=== PATIENT | male | born 1985 | race Two or more races ===

== ENCOUNTER 2020-05-04 16:00 | Emergency (ER) | payer BC, OTHER ==
[~2020-05-04] VITALS: Ht 180.3 cm; Wt 80.4 kg
[2020-05-04] MEDS ORDERED: LIDOCAINE-MPF 1%, 5ML ONE (16:24)
[2020-05-04] MEDS ORDERED: DIPH,PERTUSS(ACELL),TET VAC/PF 0.5 ML IM-VACC ONE ×2 (16:30→16:31)
[2020-05-04] MEDS ORDERED: LIDOCAINE-MPF 1%, 5ML INFIL ONE (16:30)
[2020-05-04] MEDS ORDERED: BUPIVACAINE 0.25% INFIL ONE (16:30)
[2020-05-04] MEDS ORDERED: BUPIVACAINE 0.25% ONE (16:31)
[2020-05-04] MEDS ORDERED: NEOSPORIN OINT. PKT 1 PACKET ONE (17:27)
[2020-05-04 18:04] VITALS: BP 136/96
--- NOTE | 2020-05-04 18:23 | NUR ---
TASK RN: SPOKE WITH DR ESTRADA RE: WOUND CARE AND F/U. PT IS TO CALL [facility] TO FOR F/U APPT. W/I 3 DAYS. IF PT IS UNABLE TO MAKE APPT AT [facility] HE IS TO RETURN TO THE ED FOR RECHECK. HE IS TO KEEP THE DRESSING CDI UNTIL F/U. PT VERBLAIZES UNDERSTANDING.
--- NOTE | 2020-05-04 18:24 | NUR ---
TASK RN: Patient/Caregiver given discharge instructions and they have confirmed that they understand the instructions. Patient ambulatory with steady gait.
== END 2020-05-04 18:27 | disposition home or self-care (01) ==
LOC: ED 18:00
DX: S62.630B Displaced fracture of distal phalanx of right index finger, initial encounter for open fracture (principal); G89.11 Acute pain due to trauma; W23.0XXA Caught, crushed, jammed, or pinched between moving objects, initial encounter; Y93.89 Activity, other specified; Y92.098 Other place in other non-institutional residence as the place of occurrence of the external cause; Y99.8 Other external cause status
CPT/HCPCS: 11740; 12042; 90471; 90715; 99284

== ENCOUNTER 2020-05-06 12:28 | Emergency (ER) | payer BC, OTHER ==
[~2020-05-06] VITALS: Ht 177.8 cm; Wt 70.0 kg
--- NOTE | 2020-05-06 13:24 | NUR ---
PT STATES HE WAS UNABLE TO SECURE AN APPOINTMENT W/ [facility] FOR FX FOLLOW-UP. C/O THROBBING PAIN TO FINGER, SLIGHT BLOOD DISCHARGE FROM FINGER TIP AREA. DRESSING AND FINGER SPLINT PRESENT. PT DENIES REMOVING DRESSING/SPLINT. STATES PAIN MED NOT HELPING (HYDROCODONE/ACET 5-325MG) - LAST DOSE 1200 TODAY.
[2020-05-06] MEDS ORDERED: HYDR-3240 PO (13:30)
[2020-05-06] MEDS ORDERED: CEPH-376 PO (13:30)
--- NOTE | 2020-05-06 13:31 | NUR ---
DR LYON BS FOR EXAM
--- NOTE | 2020-05-06 13:41 | NUR ---
SPLINT AND PARTIAL DRESSING REMOVED PER ERP. DRESSING ADHERED TO FINGERTIP. PT NOW SOAKING FINGER/DRESSING IN STERILE WATER.
--- NOTE | 2020-05-06 13:46 | NUR ---
DRESSING & ADAPTEC REMOVED. MULTIPLE STITCHES TO FINGER TIP. SCANT BLOOD DRAINAGE FROM LATERAL FINGER.
--- NOTE | 2020-05-06 15:40 | NUR ---
PT RESTING QUIETLY ON GURNEY, AWAITING FINGER RE-DRESSING & SPLINT.
[2020-05-06] MEDS ORDERED: NEOSPORIN OINT. PKT 1 PACKET ONE (15:44)
[2020-05-06 16:20] VITALS: BP 132/99
--- NOTE | 2020-05-06 16:20 | NUR ---
PT REQUESTING ARM SLING
--- NOTE | 2020-05-06 16:25 | NUR ---
SLING APPLIED PER DRYWALLER
== END 2020-05-06 16:31 | disposition home or self-care (01) ==
LOC: ED 16:00
DX: S62.660B Nondisplaced fracture of distal phalanx of right index finger, initial encounter for open fracture (principal); W23.0XXA Caught, crushed, jammed, or pinched between moving objects, initial encounter; Y93.89 Activity, other specified; Y92.89 Other specified places as the place of occurrence of the external cause; Y99.8 Other external cause status
CPT/HCPCS: 99283

== ENCOUNTER 2020-05-13 16:30 | Emergency (ER) | payer BC ==
[~2020-05-13] VITALS: Ht 180.3 cm; Wt 80.6 kg
[~2020-05-13 16:30] MED LIST: CEPH-376 PO; HYDR-3240 PO
[2020-05-13 16:49] VITALS: BP 120/85
== END 2020-05-13 17:19 | disposition home or self-care (01) ==
LOC: ED 17:00
DX: S61.210D Laceration without foreign body of right index finger without damage to nail, subsequent encounter (principal); X58.XXXD Exposure to other specified factors, subsequent encounter
CPT/HCPCS: 99283

== ENCOUNTER 2020-05-21 16:13 | Emergency (ER) | payer BC ==
[~2020-05-21] VITALS: Ht 180.3 cm; Wt 80.2 kg
[2020-05-21 16:30] VITALS: BP 150/108
--- NOTE | 2020-05-21 17:07 | NUR ---
UPON ENTRY TO ROOM, DESIGN INTERN REMOVING SUTURES. PT FINGER TENDER, BUT TOLERATING SUTURE REMOVAL WELL. ERPA IN DURING REMOVAL, AND WILL RECHECK FOLLOWING SUTURE REMOVAL.
[2020-05-21] MEDS ORDERED: NEOSPORIN OINT. PKT 1 PACKET ONE (17:23)
== END 2020-05-21 17:35 | disposition home or self-care (01) ==
LOC: ED 17:30
DX: S61.210D Laceration without foreign body of right index finger without damage to nail, subsequent encounter (principal); X58.XXXD Exposure to other specified factors, subsequent encounter
CPT/HCPCS: 99282